=== PATIENT | female | born 1950 | race Caucasian/White ===

== ENCOUNTER 2019-03-22 00:45 | Emergency (ER) | payer MEDICARE ==
[~2019-03-22] VITALS: Ht 167.6 cm; Wt 90.9 kg
[2019-03-22 00:49] VITALS: Ht 167.6 cm; Wt 90.9 kg
[2019-03-22] MEDS ORDERED: BRILINTA90 MG PO (00:50)
[2019-03-22] MEDS ORDERED: [UNRECOGNIZED DRUG - REMARK] (00:51)
[2019-03-22] MEDS ORDERED: METFORMIN HCL500 M1 PO (00:51)
[2019-03-22] MEDS ORDERED: BAYER CHEWABLE81 MG PO (00:51)
[2019-03-22 01:32] LABS: BASOPHILS 0.2 % (0-2); EOSINOPHILS 0.3 % (0-7); HEMATOCRIT 35.9 % (36.0-48.0); HEMOGLOBIN 12.1 g/dL (12-16); IMMATURE GRANULOCYTES 0.3 % (0-5); LYMPHOCYTES 12.2 % (15-50); MCH 29.5 pg (26.0-34.0); MCHC 33.7 g/dL (31.0-37.0); MCV 87.6 fL (80.0-100.0); MEAN PLATELET VOLUME 10.8 fL (7.4-10.4); PLATELET COUNT 254 10x3/uL (130-400); RDW 13.9 % (11.5-14.5); WBC 10.8 10x3/uL (4.8-10.8)
[2019-03-22 01:36] LABS: INR 1.04 (0.85-1.17); PROTIME 13.1 SECONDS (11.6-15.0)
[2019-03-22 01:37] LABS: APTT 33.9 SECONDS (22.8-39.4)
[2019-03-22 01:39] LABS: APPEARANCE CLEAR (CLEAR); BILIRUBIN NEGATIVE (NEGATIVE); COLOR YELLOW (YELLOW); GLUCOSE NEGATIVE (NEGATIVE); KETONE NEGATIVE (NEGATIVE); NITRITE NEGATIVE (NEGATIVE); PROTEIN NEGATIVE (NEGATIVE); UROBILINOGEN NORMAL (NORMAL)
[2019-03-22 01:44] LABS: ALBUMIN 3.5 g/dL (3.4-5.0); ALKALINE PHOSPHATASE 80 U/L (46-116); ALT (SGPT) 27 U/L (10-68); BILIRUBIN - TOTAL 0.55 mg/dL (0.2-1.3); CALC OSMOLALITY 281 mosm/kg (275-300); CALCIUM 9.1 mg/dL (8.5-10.1); CARBON DIOXIDE 25.2 mmol/L (21.0-32.0); CHLORIDE - SERUM 101 mmol/L (98-107); CREATININE - SERUM 0.9 mg/dL (0.6-1.3); GLUCOSE 169 mg/dL (74-106); POTASSIUM - SERUM 4.2 mmol/L (3.5-5.1); PROTEIN - SERUM 7.6 g/dL (6.4-8.2); SODIUM 138 mmol/L (136-145); UREA NITROGEN 19 mg/dL (7-18); eGFR NON AFRICAN AMERICAN 66 mL/min (90-120)
[2019-03-22 01:52] LABS: CKMB 0.2 U/L (0.0-3.6); CREATINE KINASE 40 UL (21-215)
[2019-03-22 01:53] LABS: TROPONIN-I < 0.017 ng/mL (0.000-0.060)
[2019-03-22] MEDS ORDERED: ZOFRAN ODT4 MG/UDTAB PO (02:26)
[2019-03-22] MEDS ORDERED: ACETAMINOPHEN500 M1 PO (02:26)
[2019-03-22] MEDS ORDERED: FLORASTOR250 MG PO (02:26)
[2019-03-22 03:03] VITALS: BP 128/69
== END 2019-03-22 03:03 | disposition home or self-care (01) ==
LOC: EDBD 00:45 → D.ER 00:45
PROVIDERS: Family Medicine
DX: R19.7 Diarrhea, unspecified (principal); R11.2 Nausea with vomiting, unspecified; B34.9 Viral infection, unspecified

== ENCOUNTER 2019-05-02 19:00 | Outpatient (CLI) | payer MEDICARE, BC ==
[2019-03-22 00:49] VITALS: BMI 32.3
[~2019-05-02 19:00] MED LIST: ACETAMINOPHEN500 M1 PO; BAYER CHEWABLE81 MG PO; BRILINTA90 MG PO; FLORASTOR250 MG PO; METFORMIN HCL500 M1 PO; ZOFRAN ODT4 MG/UDTAB PO; [UNRECOGNIZED DRUG - REMARK]
== END 2019-05-02 23:59 | disposition home or self-care (01) ==
LOC: D.MAMMO 19:00
PROVIDERS: ATTEND Family Medicine
DX: Z12.31 Encounter for screening mammogram for malignant neoplasm of breast (principal)

== ENCOUNTER 2020-05-05 19:00 | Outpatient (CLI) | payer MEDICARE, BC ==
[2019-03-22 00:49] VITALS: BMI 32.3
== END 2020-05-05 23:59 | disposition home or self-care (01) ==
LOC: D.MAMMO 19:00
PROVIDERS: ATTEND Nurse Practitioner
DX: Z12.31 Encounter for screening mammogram for malignant neoplasm of breast (principal)

== ENCOUNTER → 2020-05-26 13:17 | Outpatient (CLI) | payer MEDICARE, BC ==
[2019-03-22 00:49] VITALS: BMI 32.3
== END | disposition home or self-care (01) ==
LOC: D.HCCECHO 13:17
PROVIDERS: ATTEND Internal Medicine Cardiovascular Disease
DX: I25.10 Atherosclerotic heart disease of native coronary artery without angina pectoris (principal)